=== PATIENT | female | born 1955 | race Caucasian/White ===

== ENCOUNTER → 2016-06-18 | Outpatient (REF) | payer BC | LOC: M LAB REF 09:24 | PROVIDERS: ATTEND Surgery | DX: N63 Unspecified lump in breast (principal) ==

== ENCOUNTER → 2016-07-30 | Outpatient (CLI) | payer BC ==
--- NOTE | 2016-08-04 13:56 | RADONC ---
RADIATION ONCOLOGY CONSULTATION NOTE: DATE OF SERVICE: 07/30/2016 CHART NO: [id number] DIAGNOSIS: Right breast cancer. STAGE: Stage II A, T2N0M0 ECOG PERFORMANCE STATUS: 0 Ms. 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 HISTORY OF PRESENT ILLNESS: The patient was in the usual state of health until bilateral screening mammogram was done on 05/26/2016 which showed a 2 cm spiculated lesion in the 12-o'clock position of the right breast. On 06/18/2016, the patient underwent ultrasound-guided needle biopsy of her right breast mass and pathology revealed a moderately differentiated invasive ductal carcinoma. The tumor was estrogen receptor and progesterone receptor positive and HER2 negative. On 07/16/2016, the patient underwent lumpectomy and sentinel lymph node biopsy. Pathology revealed a 2.2 cm moderately differentiated invasive ductal carcinoma in the center of the lumpectomy specimen. The tumor mass was spiculated and the tumor spread along five receptive further out into the tissue and formed small tumor nodules. Additional tumor nodules were approximately 0.7 cm away from the blue inked inferior margin. The main tumor was 0.6 cm away from the inked margin. The carcinoma itself was more than a centimeter away from all margins and the skin. Once again the tumor was found to be estrogen receptor and progesterone receptor positive and HER2 negative. The patient is now presenting to us for discussion of postoperative radiation therapy in an attempt to increase the likelihood of achieving local control and cure for conservative breast management. PAST MEDICAL HISTORY: The patient's past medical history is largely noncontributory. She has been in generally good health. ALLERGIES: The patient has no known drug allergies. SOCIAL HISTORY: The patient does not smoke cigarettes. She drinks wine socially. FAMILY HISTORY: The patient's family history is positive for a grandmother with some type of cancer of unknown origin. REVIEW OF SYSTEMS: The patient's review of systems is noncontributory. Denies nausea, vomiting, fevers, chills, night sweats, diplopia, headaches, anxiety or depression, anorexia, weight loss, visual disturbances, chest pain, urinary or bowel difficulties, bone pain, or neurological problems. PHYSICAL EXAMINATION: The patient is a well-developed, well-nourished female in no acute distress. HEENT exam is normocephalic, atraumatic. Extraocular movements are intact. There is no palpable cervical, supraclavicular, infraclavicular, axillary, or inguinal lymphadenopathy present. Lungs are clear to auscultation and percussion. Heart has a regular rate and rhythm. Abdomen is benign with no hepatosplenomegaly, masses, or tenderness. Breast examination reveals no masses or discharge bilaterally. Skeletal examination reveals no tenderness to pressure or percussion of the bony skeleton. Extremities reveal no clubbing, cyanosis, or edema. Neurologic exam is grossly intact, as is the remainder of the physical examination. ASSESSMENT: The patient is presenting to us today for what appears to be a stage II A, T2N0M0 right-sided breast carcinoma status post lumpectomy and sentinel lymph node biopsy. Clearly the patient is a candidate for external beam radiation therapy and I have so informed her. I have discussed with the patient in detail the potential benefits as well as possible acute and chronic sequelae of external beam radiation therapy. We discussed logistics of treatment planning, simulation and subsequent fractionated daily radiation treatments. The patient is scheduled to be seen in medical oncology on August 04, 2016. Pending their expert opinion, further recommendations will be made. Clearly, if the patient is deemed to benefit from chemotherapy, then chemotherapy would be delivered prior to radiation. I have tentatively ordered a CT simulation of her right breast for 2 to 2-1/2 weeks out. This will allow further time for healing as well as further medical oncology consult. The simulation, as noted above, will be cancelled if the patient is to receive chemo. Otherwise we will progress with treatment planning as scheduled. Thank you for allowing us to participate in the care of this very pleasant woman. If I could be of any further assistance or provide you with any information, please free to contact me anytime. As always warm regards, IMAGING STUDIES: I have personally reviewed the patients screening mammogram done 05/26/2016, which showed the suspicious lesion in the right breast. cc: MD Shubham Dominique MD *ALDO Barkley
== END ==
LOC: M ONCR 09:54
PROVIDERS: ATTEND Radiology Radiation Oncology
DX: C50.919 Malignant neoplasm of unspecified site of unspecified female breast (principal)

== ENCOUNTER → 2016-08-04 | Outpatient (REF) | payer BC | LOC: M LAB REF 17:12 | PROVIDERS: ATTEND Internal Medicine Medical Oncology | DX: C50.919 Malignant neoplasm of unspecified site of unspecified female breast (principal) ==

== ENCOUNTER 2016-09-10 13:55 | Outpatient (RCR) | payer BC ==
--- NOTE | 2016-09-10 14:30 | RADONC ---
RADIATION ONCOLOGY PROGRESS NOTE DATE: 09/10/2016 CHART NUMBER: [id number] Ms. Lr had been scheduled once again for simulation of her right breast field today. We took the patient to the CT simulation for initiation of simulation. At that time, the patient explained that she is still having mucusy discharge from an opening in her breast wound. Examination of the breast wound does show that it is not fully healed. Indeed, there is some discharge coming out of a small wound. In light of this since she is not fully healed we are scheduling for simulation in approximately one week to allow for further healing. She reports that she is scheduled to see Dr. Reynolds on Wednesday as well. We are not yet two months out from surgery. Once again, we will continue to follow and will attempt to undertake simulation next week.
--- NOTE | 2016-09-29 07:58 | RADONC ---
RADIATION ONCOLOGY PROGRESS NOTE DATE: 09/28/2016 CHART NUMBER: [id number] Ms. Lr presented to us today for possible CT simulation of her breast field. We evaluated her prior to the CT simulation. Unfortunately, there continues to be a open circular unhealed area which has some mucus plug in it, it measures several millimeters in diameter. It is somewhat smaller than it had been and is not presently draining. I have set the patient up for reevaluation and CT simulation in 2 weeks' time. Hopefully she will be healed enough at that point to start radiation. I had a lengthy discussion with her. Clearly if we begin treatment with an open wound this wound may break down and not heal. The patient is aware of those risks and willing to wait the 2 weeks.
--- NOTE | 2016-10-12 10:49 | RADONC ---
RADIATION ONCOLOGY PROGRESS NOTE: DATE: 10/12/2016 CHART NUMBER: [id number] Ms. Lr has come in today for re-evaluation and possible initiation of treatment planning for her breast tumor. The patient came in today and the wound is healing nicely. There continues to be a small spot with a scab on it that appears open but it is much smaller. The patient reports that she has had no drainage from that area in almost 3 weeks. The remainder of physical exam remains unchanged. I have scheduled the patient for re-evaluation in 2 weeks and possible simulation at that time. The patient is scheduled see Dr. Reynolds, her breast surgeon, later today for re-evaluation as well. She will ask him when he thinks she can have clearance to initiate radiation. I have also taken photographs of the patient's scar and placed her on our list for discussion at multidisciplinary tumor conference.
== END 2016-10-02 ==
LOC: M ONCR 13:55
PROVIDERS: ATTEND Radiology Radiation Oncology
DX: C50.919 Malignant neoplasm of unspecified site of unspecified female breast (principal)

== ENCOUNTER → 2016-09-22 | Outpatient (REF) | payer BC | LOC: M LAB REF 13:26 | PROVIDERS: ATTEND Internal Medicine Medical Oncology | DX: C50.919 Malignant neoplasm of unspecified site of unspecified female breast (principal) ==

== ENCOUNTER 2016-10-27 11:53 | Outpatient (RCR) | payer BC ==
--- NOTE | 2016-10-27 13:40 | RADONC ---
RADIATION ONCOLOGY SIMULATION NOTE DATE: 10/27/2016 CHART NUMBER: [id number] Ms. Lr was taken to the CT scan for CT simulation of her right breast field. CT was accomplished without difficulty or discomfort. Radiation treatment planning is underway and radiation treatments will begin subsequently. An immobilization device was created and will be used throughout the course of treatment. It was created without difficulty or discomfort. I was physically present throughout the course of CT simulation. The patient's wound appears totally healed at this point. She has had no more drainage or any sign of unhealed lesion for the past 5 weeks.
== END 2016-11-02 ==
LOC: M ONCR 11:53
PROVIDERS: ATTEND Radiology Radiation Oncology
DX: C50.811 Malignant neoplasm of overlapping sites of right female breast (principal)

== ENCOUNTER → 2016-10-27 | Outpatient (CLI) | payer BC | LOC: M RAD 10:38 | PROVIDERS: ATTEND Radiology Radiation Oncology | DX: C50.811 Malignant neoplasm of overlapping sites of right female breast (principal) ==

== ENCOUNTER 2016-11-03 10:29 | Outpatient (RCR) | payer BC ==
--- NOTE | 2016-11-16 10:05 | RADONC ---
RADIATION ONCOLOGY PROGRESS NOTE DATE: 11/16/2016 CHART NUMBER: [id number] Ms. Lr is presently at a dose of 720 cGy to her right breast and is tolerating treatments quite well at this point with no complaints related to her radiation therapy. She is having no breast or bone pain. REVIEW OF SYSTEMS: The patient's review of systems is noncontributory. She denies nausea, vomiting, fevers, chills, night sweats, diplopia, headaches, anxiety or depression, anorexia, weight loss, visual disturbances, chest pain, urinary or bowel difficulties, bone pain, or neurological problems. PHYSICAL EXAMINATION: The patient's skin is in excellent condition with no evidence of radiation change present. There is no moist or dry desquamation. The remainder of her physical exam remains unchanged. Ms. Lr is tolerating treatments quite well and radiation will continue as scheduled.
--- NOTE | 2016-11-23 10:16 | RADONC ---
RADIATION ONCOLOGY PROGRESS NOTE DATE: 11/23/2016 CHART NUMBER: [id number] Ms. Lr is presently at a dose of 1620 cGy to her right breast and is tolerating treatments quite well at this point with no complaints related to her radiation therapy. She has no breast or bone pain. REVIEW OF SYSTEMS: The patient's review of systems is noncontributory. Denies nausea, vomiting, fevers, chills, night sweats, diplopia, headaches, anxiety or depression, anorexia, weight loss, visual disturbances, chest pain, urinary or bowel difficulties, bone pain, or neurological problems. PHYSICAL EXAMINATION: The patient's skin is in good condition with no evidence of radiation change present. There is no moist or dry desquamation. The remainder of her physical exam remains unchanged. Ms. Lr is tolerating treatments quite well and radiation will continue as scheduled.
--- NOTE | 2016-12-01 07:01 | RADONC ---
RADIATION ONCOLOGY PROGRESS NOTE DATE: 11/30/2016 CHART NUMBER: [id number] Ms. Lr is presently at a dose of 2520 cGy to her right breast and is tolerating treatments quite well at this point with no complaints related to her radiation therapy. She is having no breast or bone pain. REVIEW OF SYSTEMS: The patient's review of systems is noncontributory. Denies nausea, vomiting, fevers, chills, night sweats, diplopia, headaches, anxiety or depression, anorexia, weight loss, visual disturbances, chest pain, urinary or bowel difficulties, bone pain, or neurological problems. PHYSICAL EXAMINATION: The patient's skin is in good condition with no evidence of moist or dry desquamation. The remainder of physical exam remains unchanged as well. Ms. Lr is tolerating treatments quite well and radiation will continue as scheduled.
== END 2016-12-03 ==
LOC: M ONCR 10:29
PROVIDERS: ATTEND Radiology Radiation Oncology
DX: C50.811 Malignant neoplasm of overlapping sites of right female breast (principal)

== ENCOUNTER 2016-12-04 11:23 | Outpatient (RCR) | payer BC ==
--- NOTE | 2016-12-09 08:53 | RADONC ---
RADIATION ONCOLOGY PROGRESS NOTE DATE: 12/08/2016 CHART NUMBER: [id number] Ms. Lr is presently at a dose of 3420 cGy to her right breast and is tolerating treatments quite well at this point with no complaints related to her radiation therapy. She is having no breast or bone pain. The patient's review of systems is noncontributory. She denies nausea, vomiting, fevers, chills, night sweats, diplopia, headaches, anxiety or depression, anorexia, weight loss, visual disturbances, chest pain, urinary or bowel difficulties, bone pain, or neurological problems. PHYSICAL EXAMINATION: The patient's skin is in good condition with just some erythema present. There is no moist or dry desquamation. The remainder of her physical exam remains unchanged. Ms. Lr is tolerating treatments quite well and radiation will continue as scheduled.
--- NOTE | 2016-12-14 10:26 | RADONC ---
RADIATION ONCOLOGY PROGRESS NOTE DATE: 12/14/2016 CHART NUMBER: [id number] Ms. Lr is presently at a dose of 4140 cGy to her right breast and is tolerating treatments quite well at this point with no complaints related to her radiation therapy. She is having no skin discomfort or other pain. The patient's review of systems is noncontributory. She denies nausea, vomiting, fevers, chills, night sweats, diplopia, headaches, anxiety or depression, anorexia, weight loss, visual disturbances, chest pain, urinary or bowel difficulties, bone pain, or neurological problems. PHYSICAL EXAMINATION: The patient's skin is in good condition with no evidence of moist or dry desquamation. The remainder of physical exam remains unchanged. Ms. Lr is tolerating treatments quite well and radiation will continue as scheduled.
--- NOTE | 2016-12-17 05:38 | RADONC ---
RADIATION ONCOLOGY SIMULATION NOTE DATE: 12/16/2016 CHART NUMBER: [id number] Ms. Lr was taken to the linear accelerator today for clinical setup of her right breast electron beam boost field. Setup was accomplished without difficulty or discomfort. Radiation treatment planning is underway and radiation treatments will begin subsequently. An immobilization device was created and will be used throughout the course of treatment. I was physically present throughout the course of simulation.
--- NOTE | 2016-12-21 10:26 | RADONC ---
RADIATION ONCOLOGY PROGRESS NOTE DATE: 12/21/2016 CHART NUMBER: [id number]. PROGRESS NOTE: Ms. Lr is presently at a dose of 5060 cGy to her right breast primary site and is tolerating treatments quite well with no complaints related to her radiation therapy. REVIEW OF SYSTEMS: The patient's review of systems is noncontributory. Denies nausea, vomiting, fevers, chills, night sweats, diplopia, headaches, anxiety or depression, anorexia, weight loss, visual disturbances, chest pain, urinary or bowel difficulties, bone pain, or neurological problems. PHYSICAL EXAMINATION: The patient's skin overall is in good condition. There is a small area of moist desquamation in the inframammary region, which is no longer being treated. The remainder of her physical exam remains unchanged. Ms. Lr is tolerating treatments quite well and radiation will continue as scheduled. I offered to send in a prescription for Silvadene to be applied topically in the inframammary area but the patient has refused. 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
--- NOTE | 2016-12-29 08:08 | RADONC ---
RADIATION ONCOLOGY TREATMENT SUMMARY DATE: 12/28/2016 CHART NUMBER: [id number] DIAGNOSIS: Right breast cancer. STAGE: IIA, T2N0M0. ECOG PERFORMANCE STATUS: 0 TREATMENT SUMMARY: Ms. Lr is a very pleasant 61-year-old white female with the diagnosis of a stage IIA, T2N0M0 moderately differentiated infiltrating ductal carcinoma of the right breast who presented to us status post lumpectomy and sentinel lymph node biopsy for consideration of postoperative radiation therapy for conservative breast management. We treated the patient to the right breast for a total dose of 4860 cGy delivered in 27 fractions of 180 cGy each over 37 elapsed days from 11/11/2016 through 12/18/2016. This patient's right breast was treated on the linear accelerator utilizing a combination of 6X and 18X photon beams via a 3D conformal technique with medial and lateral tangential moran. Following completion of 4860 cGy to the entire right breast, the primary site was boosted for an additional 1200 cGy delivered in 6 fractions of 200 cGy each from 12/21/1816 through 12/28/2016. The primary site boost was treated on a linear accelerator utilizing a 9 MeV electron beam prescribed to the 90% isodose line via an en face technique. This brought the primary site to a total dose of 6060 cGy delivered in 33 fractions over 47 elapsed days from 11/11/2016 through 12/28/2016. Ms. Lr tolerated her treatments quite well and was able to complete therapy as prescribed without interruption. I have scheduled the patient to see me again in 1 month for further followup. She will also continue to be followed by her other physicians as well. cc: Nuvia Causey MD, FACP MD Kamryn Pearson, KAREN
== END 2017-01-02 ==
LOC: M ONCR 11:23
PROVIDERS: ATTEND Radiology Radiation Oncology
DX: C50.811 Malignant neoplasm of overlapping sites of right female breast (principal)

== ENCOUNTER → 2016-12-23 | Outpatient (REF) | payer BC | LOC: M LAB REF 08:24 | PROVIDERS: ATTEND Internal Medicine Medical Oncology | DX: C50.919 Malignant neoplasm of unspecified site of unspecified female breast (principal) ==

== ENCOUNTER → 2017-06-21 | Outpatient (REF) | payer BC ==
[2017-06-21 14:20] LABS: TOTAL 25(OH) VITAMIN D 54.3 NG/ML (30.0-100.0)
== END ==
LOC: M LAB REF 13:29
DX: C50.919 Malignant neoplasm of unspecified site of unspecified female breast (principal)
CPT/HCPCS: 82306

== ENCOUNTER → 2018-08-18 | Outpatient (REF) | payer BC ==
[~2018-08-18] MED LIST: ANAS1TAB2 PO; EXEM25TA PO; VITA100066 PO
== END ==
LOC: M LAB REF 19:02
PROVIDERS: ATTEND Internal Medicine
DX: N63.10 Unspecified lump in the right breast, unspecified quadrant (principal); Z85.3 Personal history of malignant neoplasm of breast

== ENCOUNTER → 2020-02-06 | Outpatient (CLI) | payer MEDICARE ==
[~2020-02-06] MED LIST changes: +CVS1CHW13 PO
[2020-02-06 12:27] LABS: BASO # 0.1 10^3/uL (0.0-0.2); BASO % 0.9 % (0.0-1.0); EOS # 0.5 10^3/uL (0.0-0.5); HEMATOCRIT 43.1 % (36.0-47.0); MEAN CORPUSCULAR HEMOGLOBIN 29.2 pg (27.0-33.0); MEAN CORPUSCULAR HGB CONC 32.5 g/dl (32.0-36.5); MEAN CORPUSCULAR VOLUME 89.8 fl (80.0-96.0); MONO # 0.7 10^3/uL (0.0-0.8); MONO % 7.6 % (0.0-5.0); NEUTROPHILS # 4.4 10^3/uL (1.5-8.5); NEUTROPHILS % 45.2 % (36.0-66.0); PLATELET COUNT, AUTOMATED 299 10^3/uL (150-450); WHITE BLOOD COUNT 9.7 10^3/uL (4.0-10.0)
[2020-02-06 13:14] LABS: ALT/SGPT 26 U/L (12-78); BILIRUBIN,TOTAL 0.5 MG/DL (0.2-1.0); BLOOD UREA NITROGEN 16 MG/DL (7-18); CALCIUM LEVEL 9.7 MG/DL (8.8-10.2); CARBON DIOXIDE LEVEL 28 MEQ/L (21-32); CHLORIDE LEVEL 104 MEQ/L (98-107); CREATININE FOR GFR 0.98 MG/DL (0.55-1.30); GLOMERULAR FILTRATION RATE > 60.0 (>45); GLUCOSE, FASTING 103 MG/DL (70-100); IMMUNOGLOBULIN G 1840 MG/DL (681-1648); IMMUNOGLOBULIN M 96.3 MG/DL (40-230); POTASSIUM SERUM 4.4 MEQ/L (3.5-5.1); SODIUM LEVEL 136 MEQ/L (136-145); TOTAL PROTEIN 8.4 GM/DL (6.4-8.2)
[2020-02-08 11:48] LABS: ALBUMIN 4.35 GM/DL (3.29-5.55); ALBUMIN % 51.8 % (55.8-66.1); ALPHA-1-GLOBULIN % 3.5 % (2.9-4.9); ALPHA-1-GLOBULINS 0.29 GM/DL (0.17-0.41); ALPHA-2-GLOBULINS 0.78 GM/DL (0.42-0.99); ALPHA-2-GLOBULINS % 9.3 % (7.1-11.8); BETA-1-GLOBULINS 0.54 GM/DL (0.28-0.60); BETA-1-GLOBULINS % 6.4 % (4.7-7.2); BETA-2-GLOBULINS 0.59 GM/DL (0.19-0.55); GAMMA GLOBULINS 1.85 GM/DL (0.65-1.58)
== END ==
LOC: M WUC 08:53
PROVIDERS: ATTEND Internal Medicine Hematology
DX: C50.912 Malignant neoplasm of unspecified site of left female breast (principal)

== ENCOUNTER → 2020-09-23 | Outpatient (CLI) | payer MEDICARE ==
--- NOTE | 2020-09-23 13:55 | REPMRS ---
Patient History The patient states she had a clinical breast exam in August 2020. Patient is postmenopausal and has history of breast cancer at age 60. No known family history of cancer. Stereotactic core biopsy of the right breast, August 18, 2018. Mammogram-guided core biopsy of the right breast, July 16, 2016. Radiation therapy of the right breast, 2016. Patient states no breast complaints today. Patient has signed MRS History Sheet. Digital Woman Screen Mammo: September 23, 2020 - Exam #: [id number] Bilateral CC and MLO view(s) were taken. Technologist: Kym David, Technologist Prior study comparison: August 31, 2019, bilateral digital mammo screening bilat, performed at [facility]. August 11, 2018, right breast digital mammo diagnostic unilateral, performed at [facility]. May 27, 2017, bilateral digital mammo screening bilat, performed at [facility]. FINDINGS: There are scattered fibroglandular densities. The [facility] volumetric breast density category is:B. There are stable benign post treatment changes in the right breast again noted. There has been no change in the appearance of the mammogram from the prior studies. There is a mild amount of scattered fibroglandular density which is fairly symmetric. There is no interval development of dominant mass, architectural distortion, or grouped microcalcification suggestive of malignancy. 3-D tomosynthesis shows no additional findings. Assessment: BI-RADS/ACR category 2 mammogram. Benign Findings. Recommendation Routine screening mammogram of both breasts in 1 year (for women over age 40). This mammogram was interpreted with the aid of an FDA-approved computer-aided dectection system. Electronically Signed By: Noé Jefferson MD 09/23/20 [id number]
--- NOTE | 2020-09-23 14:45 | DEXAMM ---
INDICATION: SCREENING, ON AI FOR HX OF BREAST CA. COMPARISON: 08/08/2018, 08/06/2016. TECHNIQUE: Bone density was measured using dual-energy x-ray absorptiometry (DEXA). FINDINGS: AP SPINE L1-L4 BMD 1.528 g/cm2 Young Adult T-Score 2.7 Age Matched Z-Score 4.3. LT FEMUR, TOTAL BMD 0.977 g/cm2 Young Adult T-Score -0.2 Age Matched Z-Score 1.1. LT NECK BMD 0.927 g/cm2 Young Adult T-Score -0.8 Age Matched Z-Score 0.7. RT FEMUR, TOTAL BMD 1.025 g/cm2 Young Adult T-Score 0.1 Age Matched Z-Score 1.4. RT NECK BMD 0.975 g/cm2 Young Adult T-Score -0.5 Age Matched Z-Score 1.1. IMPRESSION: There is normal bone density of the spine. There is normal bone density of the left hip. There is normal bone density of the right hip. The density of the spine has increased 1.6% since the initial exam on 08/06/2016. The density of the spine increased 1.6% since most recent exam on 08/08/2018. The density of the left hip has decreased 0.7% since initial exam on 08/06/2016. The density of the left hip has increased 3.2% since most recent exam on 08/08/2018. The density of the right hip has decreased 1.3% since the initial exam on 08/06/2016. The density of the right hip has increased 1.6% since the most recent exam on 08/08/2018. FOLLOW-UP: Recommendation for the next bone density exam: 5 years. <Electronically signed by Ethan Cortez > 09/23/20 [id number]
== END ==
LOC: M WHC 12:49
PROVIDERS: ATTEND Specialist
DX: Z12.31 Encounter for screening mammogram for malignant neoplasm of breast (principal); Z78.0 Asymptomatic menopausal state; Z85.3 Personal history of malignant neoplasm of breast; Z86.018 Personal history of other benign neoplasm; Z92.3 Personal history of irradiation; Z79.811 Long term (current) use of aromatase inhibitors

== ENCOUNTER → 2021-09-26 | Outpatient (CLI) | payer MEDICARE | LOC: M WHC 13:11 | PROVIDERS: ATTEND Specialist | DX: Z12.31 Encounter for screening mammogram for malignant neoplasm of breast (principal); Z85.3 Personal history of malignant neoplasm of breast ==

== ENCOUNTER → 2022-06-30 | Outpatient (REF) | payer MEDICARE ==
[2022-06-30 14:04] LABS: FREE T3 3.2 PG/ML (2.3-4.2)
== END ==
LOC: M LAB REF 12:23
PROVIDERS: ATTEND Nurse Practitioner Adult Health
DX: E04.8 Other specified nontoxic goiter (principal)

== ENCOUNTER → 2022-09-28 | Outpatient (CLI) | payer MEDICARE | LOC: M WHC 09:23 | PROVIDERS: ATTEND Specialist | DX: Z12.31 Encounter for screening mammogram for malignant neoplasm of breast (principal); Z85.3 Personal history of malignant neoplasm of breast; Z78.0 Asymptomatic menopausal state ==

== ENCOUNTER → 2022-11-16 | Outpatient (CLI) | payer MEDICARE | LOC: M WUC 15:35 | PROVIDERS: ATTEND Nurse Practitioner Adult Health | DX: M16.12 Unilateral primary osteoarthritis, left hip (principal) ==

== ENCOUNTER → 2023-09-30 | Outpatient (CLI) | payer MEDICARE | LOC: M WHC 07:44 | PROVIDERS: ATTEND Nurse Practitioner Adult Health | DX: Z12.31 Encounter for screening mammogram for malignant neoplasm of breast (principal); Z85.3 Personal history of malignant neoplasm of breast; Z92.3 Personal history of irradiation ==

== ENCOUNTER → 2024-10-02 | Outpatient (CLI) | payer MEDICARE ==
[~2024-10-02] MED LIST changes: +LATANOPROST
== END ==
LOC: M WHC 09:37
PROVIDERS: ATTEND Internal Medicine Hematology & Oncology
DX: Z85.3 Personal history of malignant neoplasm of breast (principal); Z12.31 Encounter for screening mammogram for malignant neoplasm of breast; R92.323 Mammographic fibroglandular density, bilateral breasts; Z13.820 Encounter for screening for osteoporosis; M85.852 Other specified disorders of bone density and structure, left thigh